=== PATIENT | female | born 1990 | race Hispanic/Latino ===

== ENCOUNTER 2023-04-12 08:04 | Day surgery (SDC) | payer MEDICAID ==
[2023-04-08 10:44] LABS: BASOPHILS % (AUTO) 0.6 % (0.0-5.0); EOSINOPHILS % (AUTO) 4.9 % (0.0-8.0); HEMATOCRIT 31.5 % (36-48); LYMPHOCYTES % (AUTO) 35.1 % (21.0-51.0); MEAN CORPUSCULAR HEMOGLOBIN 26.2 pg (27.0-33.0); MEAN CORPUSCULAR HGB CONC 30.5 g/dL (32.0-36.0); MEAN CORPUSCULAR VOLUME 85.8 fL (79-99); MONOCYTES % (AUTO) 4.7 % (3.0-13.0); NEUTROPHILS % (AUTO) 54.3 % (40.0-77.0); PLATELET COUNT (AUTO) 344 K/uL (130-400); RED BLOOD CELL COUNT(AUTO) 3.67 MIL/uL (4.00-5.50); RED CELL DISTRIBUTION WIDTH 14.9 % (11.0-15.5)
[2023-04-08 11:13] VITALS: BP 124/63
[2023-04-12] VITALS (17 sets, daily range): BP systolic 101–130; BP diastolic 44–67
[~2023-04-12] VITALS: Ht 152.4 cm; Wt 105.7 kg
[~2023-04-12 08:04] MED LIST: METH-386 PO
[2023-04-12] MEDS ORDERED: CEFAZOLIN SODIUM 2 GM VIAL ONE (08:34)
[2023-04-12] MEDS ORDERED: LACTATED RINGERS 1000ML 1,000 ML IV ONE (08:34)
[2023-04-12] MEDS ORDERED: BUPIVACAINE/PF 0.25% 10ML VIAL IJ ONE ×3 (09:27→10:29)
[2023-04-12] MEDS ORDERED: BUPIVACAINE/PF 0.25% 30ML VIAL IJ ONE ×3 (09:27→10:29)
[2023-04-12] MEDS ORDERED: ROCURONIUM 10MG/1ML SYR 10 MG/ML ML ONE (09:30)
[2023-04-12] MEDS ORDERED: MIDAZOLAM HCL 1 MG/ML 2ML VIAL ONE (09:30)
[2023-04-12] MEDS ORDERED: PROPOFOL 10 MG/ML 20ML VIAL IV ONE (09:30)
[2023-04-12] MEDS ORDERED: DEXAMETHASONE SOD PHOSPHATE 4 MG/ML 1ML VIAL ONE ×2 (09:31→10:03)
[2023-04-12] MEDS ORDERED: FENTANYL CITRATE PF 50 MCG/1 ML 5ML AMP IV ONE (09:31)
[2023-04-12] MEDS ORDERED: ONDANSETRON 4MG INJ ONE (09:32)
[2023-04-12] MEDS ORDERED: GLYCOPYRROLATE 1 MG/5 ML SYRINGE ONE (09:32)
[2023-04-12] MEDS ORDERED: NEOSTIGMINE 5MG/5ML SYR IV ONE (09:37)
[2023-04-12] MEDS ORDERED: CEFAZOLIN SODIUM 2 GM VIAL IVPB ONE (10:00)
[2023-04-12] MEDS ORDERED: MEPERIDINE-PF 25 MG/ML SYG ONE (10:04)
[2023-04-12] MEDS ORDERED: MORPHINE 2 MG SYG ONE (11:13)
== END 2023-04-12 12:20 | disposition home or self-care (01) ==
LOC: DAH 08:04
PROVIDERS: ATTEND Surgery
DX: K80.10 Calculus of gallbladder with chronic cholecystitis without obstruction (principal); Z20.822 Contact with and (suspected) exposure to COVID-19; K82.8 Other specified diseases of gallbladder; Z98.890 Other specified postprocedural states
CPT/HCPCS: 84703; 85025; 87426; 36415; 47562; 81025; A6260; J1100 ×2; A4663; J7030; J7120 ×2; J3010; J3490 ×2; J2710; J2270; S0020 ×4; J2250; J2405; J2175; J0690 ×2; G0168; C1769 ×3; A4649 ×2; A4215; A4223; A4222; A4221; A4600; J2704